=== PATIENT | female | born 2000 | race Two or more races ===

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

== ENCOUNTER → 2020-07-27 | Outpatient (CLI) | payer MEDICAID ==
[~2020-07-27] MED LIST changes: +CEPH500T PO; -CLIN300C8 PO; +CLIN300C9 PO; +RANI-376 PO
--- NOTE | 2020-07-27 13:19 | RAD ---
EXAM: Abdomen sonogram. HISTORY: Pain. TECHNIQUE: Sonographic imaging of the abdomen was performed. COMPARISON: 06/03/2018. FINDINGS: The liver is normal in size. No focal hepatic lesion is seen. The common bile duct is cedrick l in caliber. The gallbladder is unremarkable. The pancreas, spleen, aorta and inferior vena cava are unremarkable. The inferior aspect of the right kidney is not well seen due to bowel gas. The remaind er the right kidney is unremarkable. The left kidney is unremarkable. IMPRESSION: Unremarkable abdomen sonogram, with limited evaluation of the inferior right kidney due t o bowel gas. Electronically signed by: Shannan Abraham MD (07/27/2020 1:16 PM) [facility]
== END ==
LOC: US 10:53
PROVIDERS: ATTEND Family Medicine
DX: R10.84 Generalized abdominal pain (principal)
CPT/HCPCS: 76700